=== PATIENT | female | born 1945 | race Caucasian/White ===

== ENCOUNTER 2016-12-04 12:39 | Emergency (ER) | payer MEDICARE, OTHER ==
[2016-12-04 13:52] LABS: BASOPHIL 0.3 % (0-2); EOSINOPHIL 1.4 % (0-7); HCT 42.7 % (37.0-47.0); HGB 14.6 g/dl (12.5-16.0); LYMPHOCYTE 17.3 % (15-48); MCH 30.9 pg (25.0-31.0); MCHC 34.2 g/dL (32.0-36.0); MCV 90.5 fL (78.0-100.0); MONOCYTE 4.1 % (0-12); MPV 10.1 fL (6.0-9.5); NEUTROPHIL 76.9 % (41-80); PLT 201 K/uL (150-400); RBC 4.72 M/uL (4.20-5.40); RDW 12.5 % (11.5-14.0); WBC 7.1 K/uL (4.0-10.5)
[2016-12-04 13:54] LABS: BILIRUBIN NEGATIVE (NEGATIVE); BLOOD NEGATIVE Ery/uL (NEGATIVE); CLARITY CLEAR (CLEAR); COLOR STRAW (YELLOW); GLUCOSE (U) NORMAL (NORMAL); KETONE (U) NEGATIVE (NEGATIVE); LEUKOCYTES NEGATIVE Leu/uL (NEGATIVE); NITRITE NEGATIVE (NEGATIVE); PROTEIN NEGATIVE (NEGATIVE); SPECIFIC GRAVITY <=1.005 (1.001-1.030); UROBILINOGEN 0.2 mg/dL (0.2-1.0); pH 7.5 (5.0-9.0)
[2016-12-04 14:06] LABS: ALBUMIN 4.8 g/dL (3.4-4.8); BILIRUBIN - TOTAL 0.6 mg/dL (0.1-1.0); CREATININE 0.9 mg/dL (0.5-1.0); GLOBULIN (CALCULATION) 2.7 g/dL (2.2-4.2); POTASSIUM 4.7 mmol/L (3.5-5.1); TOTAL PROTEIN 7.5 g/dL (6.4-8.3)
== END 2016-12-04 18:08 | disposition home or self-care (01) ==
LOC: FER 12:39
PROVIDERS: Internal Medicine
DX: H83.09 Labyrinthitis, unspecified ear (principal)
CPT/HCPCS: 36415; 70450; 80053; 81003; 85025; 93005

== ENCOUNTER → 2016-12-08 | Day surgery (SDC) | payer MEDICARE, OTHER ==
[~2016-12-08] VITALS: Ht 157.5 cm; Wt 56.4 kg
== END | disposition home or self-care (01) ==
LOC: FAS 09:12
DX: K64.8 Other hemorrhoids (principal); M81.0 Age-related osteoporosis without current pathological fracture; G43.909 Migraine, unspecified, not intractable, without status migrainosus; K21.9 Gastro-esophageal reflux disease without esophagitis; Z79.82 Long term (current) use of aspirin; Z88.2 Allergy status to sulfonamides; Z88.8 Allergy status to other drugs, medicaments and biological substances; Z79.899 Other long term (current) drug therapy
CPT/HCPCS: J2704

== ENCOUNTER 2021-01-05 19:11 | Emergency (ER) | payer MEDICARE, OTHER ==
[~2021-01-05 19:11] MED LIST: ASPIR-LOW81 MG PO; AUGMENTIN 875-1 EACH PO; BENADRYL25 MG PO; CRESTOR10 MG PO; DICLOFENAC SOD100 G1 TOP; EXPECTORANT200 MG PO; PHOSLO667 MG PO; ROSUVASTATIN CA10 MG PO; otc vit
[2021-01-05] MEDS ORDERED: MOTRIN600 MG PO (22:18)
== END 2021-01-05 22:37 | disposition home or self-care (01) ==
LOC: FER 19:11
DX: S43.401A Unspecified sprain of right shoulder joint, initial encounter (principal); S60.212A Contusion of left wrist, initial encounter; S70.02XA Contusion of left hip, initial encounter; E78.5 Hyperlipidemia, unspecified; Z79.82 Long term (current) use of aspirin; Z79.899 Other long term (current) drug therapy; Z88.2 Allergy status to sulfonamides; Z88.1 Allergy status to other antibiotic agents; Z88.8 Allergy status to other drugs, medicaments and biological substances; W01.0XXA Fall on same level from slipping, tripping and stumbling without subsequent striking against object, initial encounter; Y92.512 Supermarket, store or market as the place of occurrence of the external cause
CPT/HCPCS: 72170; 73030; 73090; 73110; 73552; 96372; J1885

== ENCOUNTER 2021-03-16 16:21 | Emergency (ER) | payer MEDICARE ==
[~2021-03-16] VITALS: Ht 154.9 cm; Wt 57.6 kg
[~2021-03-16 16:21] MED LIST changes: +MOTRIN600 MG PO
[2021-03-16 17:22] LABS: BASOPHIL 0.4 % (0-2); HCT 42.8 % (37.0-47.0); HGB 14.6 g/dl (12.5-16.0); LYMPHOCYTE 25.1 % (15-48); MCH 31.7 pg (25.0-31.0); MCHC 34.1 g/dL (32.0-36.0); MONOCYTE 6.8 % (0-12); NEUTROPHIL 64.5 % (41-80); NRBC 0; PLT 187 K/uL (150-400); RDW 12.2 % (11.5-14.0); WBC 5.4 K/uL (4.0-10.5)
[2021-03-16 17:37] LABS: BUN/CREAT RATIO (CALC) 16.5 RATIO; CREATININE 0.91 mg/dL (0.51-0.95); POTASSIUM 3.8 mmol/L (3.5-5.1)
[2021-03-16] MEDS ORDERED: MEDROL 4MG DOSEP4 MG PO (20:12)
[2021-03-16] MEDS ORDERED: ZPAK PO (20:12)
== END 2021-03-16 21:04 | disposition home or self-care (01) ==
LOC: FER 16:21
PROVIDERS: Nurse Practitioner Family
DX: J18.9 Pneumonia, unspecified organism (principal); R91.1 Solitary pulmonary nodule; Z88.1 Allergy status to other antibiotic agents; Z88.8 Allergy status to other drugs, medicaments and biological substances; Z79.82 Long term (current) use of aspirin; Z79.899 Other long term (current) drug therapy
CPT/HCPCS: 36415; 71045; 71250; 80048; 84484; 85025; 85379; J1100

== ENCOUNTER 2022-02-20 10:08 | Emergency (ER) | payer MEDICARE, OTHER ==
[~2022-02-20 10:08] MED LIST changes: +MEDROL 4MG DOSEP4 MG PO; +ZPAK PO
[2022-02-20] MEDS ORDERED: ALLERGY RELIEF10 MG PO (12:26)
[2022-02-20] MEDS ORDERED: MEDROL 4MG DOSEP4 MG PO (12:26)
== END 2022-02-20 13:00 | disposition home or self-care (01) ==
LOC: FER 10:08
DX: T55.0X1A Toxic effect of soaps, accidental (unintentional), initial encounter (principal); L50.0 Allergic urticaria; I25.10 Atherosclerotic heart disease of native coronary artery without angina pectoris; Z88.2 Allergy status to sulfonamides
CPT/HCPCS: J1100